=== PATIENT | female | born 1955 | race Caucasian/White ===

== ENCOUNTER 2018-08-29 20:37 | Inpatient (IN) | payer MEDICAID, OTHER ==
[~2018-08-29] VITALS: Ht 160 cm; Wt 69.7 kg
[2018-08-29 21:19] LABS: ANION GAP 9 mmol/L (8-16); CALCIUM, TOTAL 9.7 mg/dL (8.8-10.5); CARBON DIOXIDE 28 mmol/L (22-29); CHLORIDE 101 mmol/L (98-107); GLOMERULAR FILTR. RATE CALC > 60 mL/min (>60); GLUCOSE,RANDOM 112 mg/dL (70-110); POTASSIUM 3.4 mmol/L (3.5-5.1); SODIUM SERUM 138 mmol/L (136-145); UREA NITROGEN, BLOOD 12 mg/dL (7-18)
[2018-08-29 21:20] LABS: BASOPHILS % (AUTO) 0.5 % (0.0-2.0); EOSINOPHILS % (AUTO) 0.6 % (1.0-6.0); HEMATOCRIT 35.2 % (36-46); HEMOGLOBIN 11.9 g/dL (12.0-16.0); LYMPHOCYTES # (AUTO) 1.9 K/uL (1.0-4.8); LYMPHOCYTES % (AUTO) 22.2 % (22.0-44.0); MEAN CORPUSCULAR HEMOGLOBIN 31.8 pg (26.0-34.0); MEAN CORPUSCULAR HGB CONC 33.9 G/dL (31.0-37.0); MEAN CORPUSCULAR VOLUME 94 fL (80-100); MONOCYTES # (AUTO) 0.6 K/uL (0.1-1.0); MONOCYTES % (AUTO) 6.6 % (2.0-9.0); NEUTROPHILS # (AUTO) 6.1 K/uL (1.8-7.7); NEUTROPHILS % (AUTO) 70.1 % (40.0-70.0); PLATELET COUNT (AUTO) 392 K/uL (150-450); RED BLOOD CELL COUNT(AUTO) 3.75 MIL/uL (4.00-5.20); RED CELL DISTRIBUTION WIDTH 13.8 % (11.5-14.5)
[2018-08-29 21:48] LABS: ALANINE AMINOTRANSFERASE 26 U/L (12-78); ALBUMIN 3.3 g/dL (3.4-5.0); ALKALINE PHOSPHATASE 74 U/L (46-116); ASPARTATE AMINOTRANSFERASE 19 U/L (15-37); BILIRUBIN,TOTAL 0.4 mg/dL (0.1-1.0); TOTAL PROTEIN, SERUM 6.8 g/dL (6.4-8.2)
[2018-08-29 22:13] LABS: ACETAMINOPHEN < 2 mcg/mL (10-30); SALICYLATE < 2.8 mg/dL (2.8-20.0)
[2018-08-29 23:49] LABS: AMPHET/METH SCREEN,URINE NEGATIVE (NEGATIVE); BARBITURATE SCREEN, URINE NEGATIVE (NEGATIVE); BENZODIAZEPINES SCREEN,URINE NEGATIVE (NEGATIVE); CANNABINOID SCREEN,URINE NEGATIVE (NEGATIVE); COCAINE SCREEN,URINE NEGATIVE (NEGATIVE); METHADONE SCREEN, URINE NEGATIVE (NEGATIVE); OPIATE SCREEN,URINE NEGATIVE (NEGATIVE)
[2018-08-29 23:50] LABS: PHENCYCLIDINE SCREEN,URINE NEGATIVE (NEGATIVE)
[2018-08-30 01:16] LABS: APPEARANCE,URINE CLEAR (CLEAR); BILIRUBIN,URINE NEGATIVE (NEGATIVE); GLUCOSE, URINE (UA) NEGATIVE (NEGATIVE); KETONES,URINE NEGATIVE (NEGATIVE); LEUKOCYTE ESTERASE ,URINE NEGATIVE (NEGATIVE); NITRATE,URINE NEGATIVE (NEGATIVE); OCCULT BLOOD,URINE NEGATIVE (NEGATIVE); PH,URINE 5.5 (5.0-8.0); PROTEIN,URINE POS 1+ (NEGATIVE)
[2018-08-30] MEDS ORDERED: LORazepam 1 MG TABLET PO ONE (01:45)
[2018-08-30] MEDS ORDERED: HALOPERIDOL 5 MG TABLET PO PRN (02:15)
[2018-08-30 02:46] LABS: BACTERIA,URINE Few /HPF (None Seen); MUCUS,URINE Many LPF (None Seen); RBC,URINE 0-2 /HPF (0-2); SQUAMOUS EPITHELIAL CELL,UR Few /LPF (None Seen); WBC,URINE 0-2 /HPF (0-5)
[2018-08-30 03:24] VITALS: BP 157/83
[2018-08-30 08:05] VITALS: BP 113/79
[2018-08-30 08:27] LABS: HEMOGLOBIN A1C 5.2 % (4.5-6.2)
[2018-08-30 08:52] LABS: CHOL/HDL RATIO 5.6 (3.9-5.7); CHOLESTEROL 209 mg/dL (131-200); FREE T4 (FREE THYROXINE) 1.01 ng/dL (0.76-1.46); HDL CHOLESTEROL 37 mg/dL (40-60); LDL CHOL (CALC.) 154 mg/dL (0-130); TRIGLYCERIDES 91 mg/dL (15-150)
[2018-08-30] MEDS ORDERED: POTASSIUM CHLORIDE 20 MEQ ER TABLET PO ONE (10:00)
[2018-08-30] MEDS: RisperiDONE 0.5 MG TABLET PO SCH ×2 (10:25→17:00)
[2018-08-30 17:00] VITALS: BP 106/58
[2018-08-31] MEDS: ZOLPIDEM TARTRATE 10 MG TABLET PO PRN (03:02)
[2018-08-31 03:25] VITALS: BP 128/78
[2018-08-31 08:05] VITALS: BP 157/69
[2018-08-31] MEDS: RisperiDONE 0.5 MG TABLET PO SCH ×2 (09:56→16:40)
[2018-08-31] MEDS ORDERED: CloNIDine HCL 0.1 MG TABLET PO PRN (22:45)
[2018-09-01] MEDS: ZOLPIDEM TARTRATE 10 MG TABLET PO PRN (00:54)
[2018-09-01 01:45] VITALS: BP 153/74
[2018-09-01] MEDS: RisperiDONE 0.5 MG TABLET PO SCH ×2 (08:09→16:23)
[2018-09-01 09:41] VITALS: BP 153/91
[2018-09-01 16:00] VITALS: BP 154/95
[2018-09-02 06:53] VITALS: BP 145/89
[2018-09-02] MEDS: RisperiDONE 0.5 MG TABLET PO SCH ×2 (08:02→16:29)
[2018-09-02 10:46] VITALS: BP 137/81
[2018-09-02] MEDS: LORazepam 2 MG TABLET PO PRN (13:16)
[2018-09-02 16:50] VITALS: BP 139/84
[2018-09-03 05:18] VITALS: BP 128/79
[2018-09-03] MEDS: LORazepam 2 MG TABLET PO PRN (08:05)
[2018-09-03] MEDS: RisperiDONE 0.5 MG TABLET PO SCH ×2 (08:05→16:29)
[2018-09-03 09:43] VITALS: BP 144/94
[2018-09-03] MEDS ORDERED: QUEtiapine FUMARATE 200 MG TABLET PO SCH (21:00)
[2018-09-03 21:34] VITALS: BP 130/56
[2018-09-04 08:05] VITALS: BP 115/67
[2018-09-04] MEDS: LORazepam 2 MG TABLET PO PRN (08:16)
[2018-09-04] MEDS: RisperiDONE 0.5 MG TABLET PO SCH (08:17)
[2018-09-04] MEDS ORDERED: QUET200T PO (10:25)
[2018-09-04] MEDS ORDERED: RISP.5 PO (10:26)
== END 2018-09-04 15:24 | disposition home or self-care (01) | DRG 750 ==
LOC: EMS 20:38 → 3EI 08-30 01:30
PROVIDERS: ADMIT Psychiatry & Neurology Child & Adolescent Psychiatry; ATTEND Psychiatry & Neurology Child & Adolescent Psychiatry
DX: F25.9 Schizoaffective disorder, unspecified (principal); E78.5 Hyperlipidemia, unspecified; E87.6 Hypokalemia; I10 Essential (primary) hypertension; F41.9 Anxiety disorder, unspecified; Z79.899 Other long term (current) drug therapy; Z28.21 Immunization not carried out because of patient refusal
CPT/HCPCS: 51701; 83036; 84132; 84439; 84443; 93005; G0480; G0481

== ENCOUNTER 2021-06-24 10:38 | Inpatient (IN) | payer MEDICAID ==
[~2021-06-24] VITALS: Ht 152.4 cm; Wt 63.8 kg
[~2021-06-24 10:38] MED LIST: QUET200T PO; RISP0.5T39 PO
[2021-06-24] MEDS ORDERED: HALOPERIDOL 5 MG TABLET PO PRN (11:45)
[2021-06-24] MEDS ORDERED: ZOLPIDEM TARTRATE 10 MG TABLET PO PRN (11:45)
[2021-06-24 12:00] LABS: GLUCOMETER DEV NAME(LOC) POC.BV
[2021-06-24] MEDS ORDERED: DIVA-85 PO (13:04)
[2021-06-24] MEDS ORDERED: QUET300T2 PO (13:04)
[2021-06-24] MEDS ORDERED: LEVO-72 PO (13:06)
[2021-06-24] MEDS ORDERED: MELO-107 PO (13:06)
[2021-06-24] MEDS: LORazepam 2 MG TABLET PO PRN (13:16)
[2021-06-24] MEDS ORDERED: PNEUMOCOCCAL VACCINE POLYVALENT 0.5 ML VIAL [PPSV23] IM. ONE (13:45)
[2021-06-24] MEDS ORDERED: INFLUENZA VIRUS VACCINE QVS 2021-22 (6MO+)/PF 60 MCG/0.5 ML SYRINGE IM. ONE (13:45)
[2021-06-25 00:38] VITALS: BP 121/68
[2021-06-25 07:18] LABS: BASOPHILS % (AUTO) 1.1 % (0.0-2.0); EOSINOPHILS % (AUTO) 1.7 % (1.0-6.0); HEMATOCRIT 39.3 % (36-46); HEMOGLOBIN 13.3 g/dL (12.0-16.0); LYMPHOCYTES # (AUTO) 1.7 K/uL (1.0-4.8); LYMPHOCYTES % (AUTO) 33.5 % (22.0-44.0); MEAN CORPUSCULAR HEMOGLOBIN 32.8 pg (26.0-34.0); MEAN CORPUSCULAR HGB CONC 33.7 G/dL (31.0-37.0); MEAN CORPUSCULAR VOLUME 97 fL (80-100); MONOCYTES # (AUTO) 0.4 K/uL (0.1-1.0); MONOCYTES % (AUTO) 8.7 % (2.0-9.0); NEUTROPHILS # (AUTO) 2.8 K/uL (1.8-7.7); PLATELET COUNT (AUTO) 335 K/uL (150-450); RED BLOOD CELL COUNT(AUTO) 4.05 MIL/uL (4.00-5.20); RED CELL DISTRIBUTION WIDTH 14.4 % (11.5-14.5)
[2021-06-25 07:42] LABS: ALANINE AMINOTRANSFERASE 11 U/L (12-78); ALBUMIN 3.6 g/dL (3.4-5.0); ALKALINE PHOSPHATASE 90 U/L (46-116); ANION GAP 7 mmol/L (8-16); ASPARTATE AMINOTRANSFERASE 8 U/L (15-37); BILIRUBIN,TOTAL 0.5 mg/dL (0.1-1.0); CALCIUM, TOTAL 9.3 mg/dL (8.8-10.5); CARBON DIOXIDE 27 mmol/L (22-29); CHLORIDE 106 mmol/L (98-107); CHOL/HDL RATIO 5.8 (3.9-5.7); CHOLESTEROL 213 mg/dL (131-200); CREATININE 0.65 mg/dL (0.60-1.30); FREE T4 (FREE THYROXINE) 0.88 ng/dL (0.76-1.46); GLOMERULAR FILTR. RATE CALC > 60 mL/min (>60); GLUCOSE,RANDOM 114 mg/dL (70-110); HCG,QUANTITATIVE 4 mIU/mL (0-6); HDL CHOLESTEROL 37 mg/dL (40-60); LDL CHOL (CALC.) 152 mg/dL (0-130); SODIUM SERUM 140 mmol/L (136-145); THYROID STIMULATING HORMONE 2.05 uIU/mL (0.36-3.74); TRIGLYCERIDES 118 mg/dL (15-150); UREA NITROGEN, BLOOD 11 mg/dL (7-18)
[2021-06-25 08:15] VITALS: BP 144/62
[2021-06-25] MEDS ORDERED: MAGNESIUM HYDROXIDE SUSPENSION 30 ML UDCUP PO PRN (10:15)
[2021-06-25] MEDS ORDERED: ACETAMINOPHEN 325 MG TABLET PO PRN (10:15)
[2021-06-25] MEDS ORDERED: ALBUTEROL SULFATE HFA 90 MCG/PUFF 8 GM INHALER IH PRN (10:15)
[2021-06-25] MEDS ORDERED: GuaiFENesin/D-METHORPHAN [SUGAR-FREE] 200-20MG/10 ML SYRUP UDCUP PO PRN (10:15)
[2021-06-25] MEDS ORDERED: ONDANSETRON HCL 4 MG TABLET PO PRN (10:15)
[2021-06-25] MEDS ORDERED: IBUPROFEN 400 MG TABLET PO PRN (10:15)
[2021-06-25] MEDS ORDERED: LOPERAMIDE HCL 2 MG CAPSULE PO PRN (10:15)
[2021-06-25] MEDS ORDERED: CloNIDine HCL 0.1 MG TABLET PO PRN (10:15)
[2021-06-25] MEDS ORDERED: PETROLATUM,WHITE 28 GM JELLY TP PRN (10:15)
[2021-06-25] MEDS ORDERED: DOCUSATE SODIUM 100 MG CAPSULE PO PRN (10:15)
[2021-06-25] MEDS ORDERED: MAG HYDROX/AL HYDROX/SIMETH ES 30 ML SUSPENSION UDCUP PO PRN (10:15)
[2021-06-25] MEDS ORDERED: NICOTINE 14 MG/24 HOUR PATCH TD PRN (10:15)
[2021-06-25] MEDS: RisperiDONE 0.5 MG TABLET PO SCH (16:19)
[2021-06-25 16:20] VITALS: BP 136/62
[2021-06-25] MEDS: QUEtiapine FUMARATE 100 MG TABLET PO SCH (20:20)
[2021-06-26 05:13] VITALS: BP 136/62
[2021-06-26] MEDS: MELOXICAM 7.5 MG TABLET PO SCH (08:12)
[2021-06-26] MEDS: LORazepam 2 MG TABLET PO PRN (08:13)
[2021-06-26] MEDS: RisperiDONE 0.5 MG TABLET PO SCH ×2 (08:13→16:37)
[2021-06-26 08:25] VITALS: BP 117/77
[2021-06-26 16:40] VITALS: BP 132/92
[2021-06-26] MEDS: QUEtiapine FUMARATE 100 MG TABLET PO SCH (20:55)
[2021-06-27 01:10] VITALS: BP 123/87
[2021-06-27] MEDS: RisperiDONE 0.5 MG TABLET PO SCH ×2 (08:17→17:53)
[2021-06-27] MEDS: MELOXICAM 7.5 MG TABLET PO SCH (08:17)
[2021-06-27] MEDS: LORazepam 2 MG TABLET PO PRN (08:17)
[2021-06-27 08:25] VITALS: BP 119/73
[2021-06-27 16:24] VITALS: BP 139/89
[2021-06-27] MEDS ORDERED: DENTURE ADHESIVE 68 GM CREAM DT PRN (17:30)
[2021-06-27] MEDS: QUEtiapine FUMARATE 100 MG TABLET PO SCH (21:14)
[2021-06-28 00:53] VITALS: BP 126/77
[2021-06-28] MEDS: RisperiDONE 0.5 MG TABLET PO SCH ×2 (08:01→17:00)
[2021-06-28] MEDS: MELOXICAM 7.5 MG TABLET PO SCH (08:01)
[2021-06-28] MEDS: LORazepam 2 MG TABLET PO PRN ×2 (08:01→21:18)
[2021-06-28 08:40] VITALS: BP 158/106
[2021-06-28] MEDS ORDERED: DENTURE ADHESIVE 68 GM CREAM DT PRN (12:15)
[2021-06-28 14:20] VITALS: BP 134/82
[2021-06-28 16:16] VITALS: BP 116/80
[2021-06-28] MEDS: QUEtiapine FUMARATE 100 MG TABLET PO SCH (20:07)
[2021-06-29 05:27] VITALS: BP 140/73
[2021-06-29] MEDS ORDERED: MELOXICAM 7.5 MG TABLET PO SCH (07:00)
[2021-06-29] MEDS: RisperiDONE 0.5 MG TABLET PO SCH ×2 (08:13→17:00)
[2021-06-29 08:27] VITALS: BP 110/73
[2021-06-29] MEDS ORDERED: QUET100T PO ×2 (13:36→13:40)
[2021-06-29 16:08] VITALS: BP 127/72
== END 2021-06-29 16:15 | disposition home or self-care (01) | DRG 751 ==
LOC: B2S 11:42 → B3A 17:00 → B2S 06-28 20:56
PROVIDERS: ADMIT Psychiatry & Neurology Psychiatry; ATTEND Psychiatry & Neurology Psychiatry
DX: F29 Unspecified psychosis not due to a substance or known physiological condition (principal); E78.5 Hyperlipidemia, unspecified; Z20.822 Contact with and (suspected) exposure to COVID-19; F20.9 Schizophrenia, unspecified; I10 Essential (primary) hypertension; Z79.899 Other long term (current) drug therapy
CPT/HCPCS: 80053; 80061; 83036; 84439; 84443; 84702; 85025; 86592